=== PATIENT | female | born 2000 | race Caucasian/White ===

== ENCOUNTER 2021-10-01 07:34 | Inpatient (IN) ==
[2021-10-01] MEDS ORDERED: Azithromycin 500 MG in 0.9 % Sodium Chloride 250 ML IVPB PRN (07:48)
[2021-10-01] MEDS ORDERED: Metoclopramide 10 MG/2 ML VIAL IVP PRN (07:48)
[2021-10-01] MEDS ORDERED: Lidocaine 1% 20 ML MDV ID PRN (07:48)
[2021-10-01] MEDS ORDERED: *HR* Nalbuphine 10 MG/ML AMPUL IV PRN (07:48)
[2021-10-01] MEDS ORDERED: Famotidine 20 MG/2 ML VIAL IVP PRN (07:48)
[2021-10-01] MEDS ORDERED: Naloxone 0.4 MG/ML INJ IVP PRN ×2 (07:48→08:52)
[2021-10-01] MEDS ORDERED: Ondansetron 4 MG/2 ML VIAL IVP PRN ×2 (07:48→08:52)
[2021-10-01] MEDS ORDERED: miSOPROStoL 25 MCG TABLET PO PRN (07:50)
[2021-10-01] MEDS ORDERED: Ringers Solution, Lactated 1,000 ML IVC SCH (08:00)
[2021-10-01] MEDS ORDERED: Oxytocin 20 units/ LR 1000 mL 20 UNIT/1,000 ML BAG IVC SCH ×2 (08:00→19:45)
[2021-10-01 08:40] LABS: Basophils % 0.4 %; Eosinophils # 0.1 K/mcL (0.0-0.6); Hematocrit 31.5 % (35.3-44.9); Hemoglobin 9.5 g/dL (11.5-15.4); Immature Granulocytes % 0.6 % (0-4); Lymphocytes # 1.5 K/mcL (0.6-4.6); Lymphocytes % 13.2 %; Mean Corpuscular HGB Conc 30.2 g/dL (31.6-35.5); Mean Corpuscular Volume 82.9 fL (83.0-100.0); Mean Platelet Volume 11.5 fL (9.4-12.4); Monocytes # 0.5 K/mcL (0.0-1.3); Neutrophils # 9.2 K/mcL (1.6-8.9); Platelet Count 214 K/mcL (140-400); Red Cell Distribution Width 16.5 % (11.5-14.5); Segmented Neutrophils % 80.8 %; White Blood Count 11.3 K/mcL (4.3-11.1)
[2021-10-01] MEDS ORDERED: *HR* FentaNYL (PF) 100 MCG/2 ML VIAL EP ONE (08:52)
[2021-10-01] MEDS ORDERED: EPHEDrine 50 MG/ML VIAL IVP PRN (08:52)
[2021-10-01] MEDS ORDERED: Ropivacaine/PF 0.2% 20 ML VIAL EP ONE (08:52)
[2021-10-01] MEDS ORDERED: Epidural Premix (fent/bupiv) 110 ML EP SCH (09:00)
[2021-10-01 09:20] LABS: Influenza A PCR Negative (Negative); Influenza B PCR Negative (Negative); Resp. Syncytial Virus PCR Negative (Negative)
[2021-10-01 09:21] LABS: SARS-CoV-2 by PCR (In House) Negative (Negative)
[2021-10-01 13:44] LABS: Amphetamine Screen,Urine Negative ng/mL (Cutoff=1000); Barbiturate Screen,Urine Negative ng/mL (Cutoff=200); Benzodiazepines Screen,Urine Negative ng/mL (Cutoff=200); Cannabinoid Screen,Urine Negative ng/mL (Cutoff = 50); Cocaine Screen,Urine Negative ng/mL (Cutoff= 300); Opiate Screen,Urine Negative ng/mL (Cutoff=300); Phencyclidine Screen,Urine Negative ng/mL (Cutoff=25)
[2021-10-01] MEDS ORDERED: 0.9 % Sodium Chloride 500 ML IVC ONE (14:55)
[2021-10-02] MEDS ORDERED: Ringers Solution, Lactated 500 ML ONE (01:30)
[2021-10-02] MEDS ORDERED: Ropivacaine/PF 0.2% 20 ML VIAL ONE (02:29)
[2021-10-02] MEDS ORDERED: Lanolin 7 G OINT...G. TP PRN (05:24)
[2021-10-02] MEDS ORDERED: Rho Immune Globulin 1,500 UNIT SYRINGE IM PRN (05:24)
[2021-10-02] MEDS ORDERED: Benzocaine/Menthol 56 GM AEROSOL SPRAY TP PRN (05:24)
[2021-10-02] MEDS ORDERED: Oxytocin 20 units/ LR 1000 mL 20 UNIT/1,000 ML BAG IVC SCH (05:24)
[2021-10-02] MEDS ORDERED: Measles/Mumps/Rubella Vacc 0.5 ML VIAL SQ PRN (05:24)
[2021-10-02] MEDS ORDERED: Oxytocin 20 units/ LR 1000 mL 20 UNIT/1,000 ML BAG IVC ONE (05:24)
[2021-10-02] MEDS ORDERED: Ondansetron ODT 4 MG TAB.RAPDIS SL PRN (06:00)
[2021-10-02] MEDS: Acetaminophen 325 MG TABLET PO SCH ×3 (08:10→20:56)
[2021-10-02] MEDS: Ibuprofen 600 MG TABLET PO SCH ×3 (08:10→20:56)
[2021-10-02] MEDS: Prenatal Vit/FA 1 EACH TABLET PO SCH (08:10)
[2021-10-03] MEDS: Ibuprofen 600 MG TABLET PO SCH (04:12)
[2021-10-03] MEDS: Acetaminophen 325 MG TABLET PO SCH (04:12)
[2021-10-03 04:36] LABS: Basophils # 0.1 K/mcL (0.0-0.2); Basophils % 0.4 %; Eosinophils # 0.2 K/mcL (0.0-0.6); Eosinophils % 1.3 %; Hematocrit 24.4 % (35.3-44.9); Hemoglobin 7.4 g/dL (11.5-15.4); Immature Granulocytes % 1.3 % (0-4); Lymphocytes # 2.2 K/mcL (0.6-4.6); Lymphocytes % 18.1 %; Mean Corpuscular HGB Conc 30.3 g/dL (31.6-35.5); Mean Corpuscular Volume 85.6 fL (83.0-100.0); Mean Platelet Volume 11.4 fL (9.4-12.4); Monocytes # 0.9 K/mcL (0.0-1.3); Monocytes % 7.8 %; Neutrophils # 8.5 K/mcL (1.6-8.9); Platelet Count 164 K/mcL (140-400); Red Blood Count 2.85 M/mcL (3.82-4.97); Red Cell Distribution Width 16.3 % (11.5-14.5); Segmented Neutrophils % 71.1 %; White Blood Count 11.9 K/mcL (4.3-11.1)
[2021-10-03 07:48] VITALS: BP 92/56; PULSE 77; TEMP 97.6; O2SAT 100
[2021-10-03] MEDS: Prenatal Vit/FA 1 EACH TABLET PO SCH (09:21)
== END 2021-10-03 14:00 | disposition home or self-care (01) | DRG 560 ==
LOC: 1NENULAB 07:34 → 1NENUOBS 10-02 06:06
PROVIDERS: ADMIT Student in an Organized Health Care Education/Training Program; ATTEND Student in an Organized Health Care Education/Training Program